=== PATIENT | male | born 1950 | race Caucasian/White ===

== ENCOUNTER 2019-10-29 03:02 | Emergency (ER) | payer OTHER ==
[~2019-10-29] VITALS: Ht 175.3 cm; Wt 108.6 kg
[2019-10-29 03:06] VITALS: BP 188/87
[2019-10-29] MEDS ORDERED: KETOROLAC 30 MG/1 ML ONE (03:29)
[2019-10-29] MEDS ORDERED: KETOROLAC 30 MG/1 ML IM ONE (03:30)
--- NOTE | 2019-10-29 04:44 | NUR ---
Patient discharged with no acute distress. tolerated splint well. patient able to verbalized understanding of splint care and self care at home. patient verbalized understanding of prescription and medication side effects. patient taken to car via wheelchair, tolerated well.
== END 2019-10-29 04:45 | disposition home or self-care (01) ==
LOC: ED 04:32
DX: G89.11 Acute pain due to trauma (principal); M25.571 Pain in right ankle and joints of right foot; M25.471 Effusion, right ankle; I25.2 Old myocardial infarction; I10 Essential (primary) hypertension; K21.9 Gastro-esophageal reflux disease without esophagitis; I25.10 Atherosclerotic heart disease of native coronary artery without angina pectoris; W01.0XXA Fall on same level from slipping, tripping and stumbling without subsequent striking against object, initial encounter; Y93.89 Activity, other specified; Y92.410 Unspecified street and highway as the place of occurrence of the external cause; Y99.8 Other external cause status
CPT/HCPCS: 29515; 73610; 73630; 96372; 99284; J1885